=== PATIENT | female | born 1970 | race Caucasian/White ===

== ENCOUNTER → 2018-09-17 12:41 | Outpatient (CLI) | payer BC, SELFPAY ==
--- NOTE | 2018-09-17 13:03 | EKG12_ITS ---
Test Reason : PRE OP Blood Pressure : / mmHG Vent. Rate : 083 BPM Atrial Rate : 083 BPM P-R Int : 172 ms QRS Dur : 084 ms QT Int : 356 ms P-R-T Axes : 054 080 064 degrees QTc Int : 418 ms Normal sinus rhythm with sinus arrhythmia Normal ECG Confirmed by KESHIA CARDOZA, ELISHA ([id number]), brands editor MELISSA SALINAS ([id number]) on 09/18/2018 2:44:16 PM Referred By: Benjamin Velasco Confirmed By:ELISHA SCHMITT MD
[2018-09-17 13:47] LABS: Absolute Lymphocyte Count 1.51 X10^3/ul (0.83-4.51); Absolute Neutrophil Count 3.9 X10^3/uL (2.0-7.7); Basophil# 0.02 X10^3/uL; Basophil% 0.3 % (0-1); Eosinophil# 0.22 X10^3/uL; Eosinophils% 3.6 % (0-5); Hemoglobin 14.7 g/dl (12.0-15.0); Lymphocyte # 1.51 X10^3/ul (4.0); Lymphocyte % 24.6 % (19-41); Mean Corp Hgb Conc 34.2 g/gl (32-36); Mean Corpuscular Hgb 33.5 pg (27.0-32.0); Mean Corpuscular Volume 97.9 fL (81-99); Mean Platelet Vol. 8.6 fl (6.2-12.0); Monocyte# 0.49 X10^3/uL; Neutrophil # 3.88 X10^3/uL (2.7-7.7); POSITIVE COUNT NO; POSITIVE DIFFERENTIAL NO; POSITIVE MORPHOLOGY NO; Platelet Count 331 K/mm3 (150-450); RBC Distribution Width CV 12.1 % (11.6-14.6); RBC Distribution Width SD 42.4 fl (35.1-43.9); Red Blood Count 4.39 M/mm3 (4.2-5.4); White Blood Count 6.2 K/mm3 (4.4-11.0)
[2018-09-17 14:13] LABS: Anion Gap 7 (5-15); BUN 17 mg/dL (7-18); BUN/Creat Ratio 14.3 RATIO (10-20); Calcium,Total 8.6 mg/dL (8.5-10.1); Chloride 106 mmol/L (98-107); Creatinine, Serum 1.19 mg/dL (0.55-1.02); EST Glomerular Filtration Rate 52 mL/min (>60); Est Glom Filt Rate - Afr Amer 63 mL/min (>60); Glucose 124 mg/dL (74-106); Potassium 3.6 mmol/L (3.5-5.1); Sodium Level 139 mmol/L (136-145)
== END ==
PROVIDERS: Physician Assistant; Family Provider Nurse Practitioner Primary Care; PCP Nurse Practitioner Primary Care; Referring Provider Orthopaedic Surgery; Visit Provider Orthopaedic Surgery
DX: Z01.818 Encounter for other preprocedural examination (principal)
CPT/HCPCS: 36415; 80048; 85025; 93005

== ENCOUNTER → 2020-06-29 14:51 | Outpatient (CLI) | payer BC, SELFPAY | PROVIDERS: PCP Nurse Practitioner Primary Care; Referring Provider Family Medicine; Visit Provider Family Medicine | DX: Z11.59 Encounter for screening for other viral diseases (principal) | CPT/HCPCS: 87635; U0003 ==

== ENCOUNTER → 2020-07-13 11:28 | Outpatient (CLI) | payer BC, SELFPAY | PROVIDERS: Referring Provider Family Medicine; Visit Provider Family Medicine | DX: Z11.59 Encounter for screening for other viral diseases (principal) | CPT/HCPCS: 87635; U0003 ==

== ENCOUNTER → 2020-07-27 12:33 | Outpatient (CLI) | payer BC, SELFPAY | PROVIDERS: Referring Provider Family Medicine; Visit Provider Family Medicine | DX: Z03.818 Encounter for observation for suspected exposure to other biological agents ruled out (principal) | CPT/HCPCS: 87635; U0003 ==

== ENCOUNTER → 2020-08-10 10:40 | Outpatient (CLI) | payer BC, SELFPAY | PROVIDERS: Referring Provider Family Medicine; Visit Provider Family Medicine | DX: Z03.818 Encounter for observation for suspected exposure to other biological agents ruled out (principal) | CPT/HCPCS: 87635; U0003 ==

== ENCOUNTER → 2020-08-24 12:11 | Outpatient (CLI) | payer BC, SELFPAY | PROVIDERS: Referring Provider Family Medicine; Visit Provider Family Medicine | DX: Z03.818 Encounter for observation for suspected exposure to other biological agents ruled out (principal) | CPT/HCPCS: 87635; U0003 ==

== ENCOUNTER 2023-04-18 09:53 | Day surgery (SDC) | payer BC, SELFPAY ==
--- NOTE | 2023-04-11 15:47 | HP.PCM_ITS ---
History and Physical Date of Admission: 04/18/23 HPI: The patient is a 52 year old female presenting for pre-operative visit. She is scheduled for hysteroscopy D&C with polyp resection and progestin IUD insertion. Possible fibroid resection, for heavy menstrual bleeding and endometrial polyp and intramural uterine fibroid on 04/18/23. Procedure discussed along with risks, benefits and complications. Other alternatives discussed for management. Consent form signed? Yes. ? ? PAST MEDICAL HISTORY PAST MEDICAL HISTORY Diagnosis Date ? Migraine, unspecified, with intractable migraine, so stated, without mention of status migrainosus ? ? PMH - PAST MEDICAL HISTORY OF ? ? seasonal allergies ? PTSD (post-traumatic stress disorder) ? ? Rosacea ? ? Unspecified asthma(493.90) ? ? ? PAST SURGICAL HISTORY PAST SURGICAL HISTORY Procedure Laterality Date ? DELIVERY ONLY ? 07/01/2003 ? , low cervical ? DELIVERY ONLY ? 03/13/2008 ? , low cervical ? FALLOPIAN TUBE RECANALIZATION Bilateral 2014 ? LIG/TRNSXJ FLP TUBE ABDL/VAG APPR UNI/BI ? 10/13/2007 ? Tubal ligation ? PAST SURGICAL HISTORY OF ? 10/13/2009 ? sinus surgery ? ? ? CURRENT MEDICATIONS Current Outpatient Medications Medication Sig Dispense Refill ? desvenlafaxine ER (PRISTIQ) 100 mg 24 hr tablet Take 100 mg by mouth once daily. ? ? ? buPROPion XL (WELLBUTRIN XL) 150 mg 24 hr tablet Take 150 mg by mouth once daily. ? ? ? pregabalin (LYRICA) 100 mg capsule Take 100 mg by mouth once daily. ? ? ? traZODone (DESYREL) 100 mg tablet take 1 to 2 tablets by mouth at bedtime if needed for sleep ? ? ? cholecalciferol, vitamin D3, 100 mcg (4,000 unit) cap Take 1 capsule by mouth once daily. ? ? ? fexofenadine-pseudoephedrine (SHARON D) 60-120 mg per tablet Take 1 tablet by mouth every morning. ? ? ? albuterol HFA (PROVENTIL HFA, VENTOLIN HFA) 90 mcg/actuation inhaler Inhale 2 Puffs as instructed as needed. ? ? ? topiramate (TOPAMAX) 100 mg tablet Take 1 tablet by mouth twice daily. ? 0 ? fexofenadine (SHARON) 180 mg tablet Take 1 tablet by mouth once daily. ? 0 ? montelukast (SINGULAIR) 10 mg tablet Take 1 tablet by mouth daily at bedtime. ? 0 ? onabotulinum toxin type A (BOTOX) 200 unit injection as directed Injection ? ? ? NURTEC ODT 75 mg disintegrating tablet dissolve 1 tablet on top of the tongue every other day ? ? ? Eiabugaxwimbjff-Dvzyhehqa-GK (BROMFED DM) 2-30-10 mg/5 mL syrup Take 10 mL by mouth four times daily as needed. (Patient not taking: Reported on 04/10/2023) 200 mL 0 ? Follitropin Beta (FOLLISTIM AQ) 300 unit/0.36 mL crtg Inject 225 Units subcutaneously once daily. (Patient not taking: Reported on 04/10/2023) 4 Cartridge 3 ? progesterone micronized (PROMETRIUM) 200 mg capsule Use 1 capsule vaginal ly as directed. Insert 2 capsules vaginally in the AM and 2 capsules vaginally in the PM (Patient not taking: Reported on 04/10/2023) 120 capsule 2 ? No current facility-administered medications for this visit. ? ? ALLERGIES: Bactrim [Sulfamethoxazole], Hydromorphone, and Seasonal [Other] ? PERSONAL HISTORY: SOCIAL HISTORY Social History ? Tobacco Use ? Smoking status: Never ? Smokeless tobacco: Never Substance Use Topics ? Alcohol use: Yes ? ? Comment: occasionally ? Drug use: No ? FAMILY HISTORY: FAMILY HISTORY FAMILY HISTORY Problem Relation Age of Onset ? Hypertension Mother ? ? Blood Disease Father ? ? Clotting disorder ON COUMADIN ? Hypertension Maternal Grandmother ? ? Alzheimer's Disease Maternal Grandmother ? ? other (lupus) Paternal Grandmother ? ? Diabetes Paternal Grandfather ? ? Cerebral Embolism Paternal Grandfather ? ? Cancer Maternal Uncle ? ? stomach ? other (ursula syndrome) Other ? ? nephew ? other (lupus) Paternal Aunt ? ? ? REVIEW OF SYMPTOMS: GENERAL: denies fevers or chills ENDOCRINOLOGY: has not been on steroids Cardiology : denies palpitations or chest pain Respiratory: denies SOB or cough Hematology: denies history of prolonged bleeding or easy bruising or VTE Allergy: Denies history of personal or family history of allergy to anesthesia ? PHYSICAL EXAMINATION: ? VITALS: Blood pressure 116/78, pulse 82, height 5' 4.25 (1.632 m), weight 190 lb (86.2 kg), last menstrual period 03/25/2023, SpO2 98 %. ? GENERAL: The patient is well nourished, well hydrated in no acute distress. , The patient is oriented to time, place, and person. NECK: Supple. No lynphadenopathy, normal thyroid, no thyromegaly. LUNGS: Clear to auscultation bilaterally. no wheezes, rhonchi or rales HEART: Regular rate and rhythm, Normal heart sounds, and No murmurs or gallops ? IMPRESSION: Menorrhagia with regular cycle, endometrial polyp, intramural uterine fibroid ? PLAN: The risks/benefits/alternatives and personal involved for the planned hysteroscopy D&C with endometrial polyp resection, progestin IUD insertion and possible fibroid resection were reviewed with the patient. Her questions were answered to her satisfaction and she desires to proceed. Consent was signed. I reviewed with her postop instructions and expectations. IUD has been placed to increase chances of amenorrhea as well as provide contraception. Patient had a history of previous tubal sterilization and then had a tubal reversal. ? ? I have reviewed and updated past medical and surgical history, medications and allergies Assessment & Plan Assessment/Plan (1) Menorrhagia: (2) Endometrial polyp: (3) Intramural uterine fibroid:
[2023-04-18 10:26] LABS: Internal QC Validated? YES +Cl - CLEAR BKGD; Pregnancy, Urine Negative Negative
[2023-04-18 10:28] VITALS: BP 129/63; PULSE 76; RESP 16; TEMP 36.6; O2SAT 98; BMI 31.1
[2023-04-18] MEDS: Lactated Ringers 1,000 ML 15 ML IV (10:43)
[2023-04-18] MEDS: Ketorolac 30 MG/ML Syringe IV (10:44)
[2023-04-18] MEDS: Acetaminophen 500 MG Tablet 1000 MG PO (10:45)
[2023-04-18] MEDS: Scopolamine 1mg/72hr Patch 1 PATCH TD (10:45)
[2023-04-18 10:49] LABS: Hematocrit 41.1 % (37-47); Hemoglobin 13.7 g/dL (12.0-15.0); Mean Corp Hgb Conc 33.3 g/dL (32-36); Mean Corpuscular Hgb 33.2 pg (27.0-32.0); Mean Corpuscular Volume 99.5 fL (81-99); Mean Platelet Vol. 8.6 fl (6.2-12.0); Platelet Count 271 K/mm3 (150-450); RBC Distribution Width CV 11.9 % (11.6-14.6); RBC Distribution Width SD 42.9 fl (35.1-43.9); Red Blood Count 4.13 M/mm3 (4.2-5.4); White Blood Count 6.5 K/mm3 (4.4-11.0)
[2023-04-18 11:03] LABS: Anion Gap 5 (5-15); BUN 18 mg/dL (7-18); BUN/Creat Ratio 15.1 RATIO (10-20); Calcium,Total 9.1 mg/dL (8.5-10.1); Chloride 112 mmol/L (98-107); Creatinine, Serum 1.19 mg/dL (0.55-1.02); EST Glomerular Filtration Rate 51 mL/min (>60); Est Glom Filt Rate - Afr Amer 62 mL/min (>60); Estimated Creatinine Clearance 52.95 ml/min; Glucose 108 mg/dL (74-106); Potassium 4.2 mmol/L (3.5-5.1); Sodium Level 141 mmol/L (136-145)
--- NOTE | 2023-04-18 11:30 | EMB_PTH ---
PATIENT: BECCA CASEY LOC: [facility] [place][id number] AGE/SX: 52/F ROOM: RE04/18/[address]: Dr. Shea Payton MD : 1970 BED: DIS: 04/18/2023 SPEC #: [id number] RECD: 04/18/23 14:04 STATUS: LILIA PETROS #: [id number] CORDELL: 04/18/23 11:[address]: Shea Payton DEPT: SURGICAL PATHOLOGY RECD BY: Denise Thompson ENTERED: 04/21/23 08:42 SP TYPE: ENDOM BX/C MICHEL DR: Jael Elder, LINDA-C Tissues: Endometrium, NOS Procedures: Surgery Specimen Level IV HEADER OPERATION: Cysteroscopy, D&C, Symphion, IUD insertion, ablation PRE-OP DIAGNOSIS: Menorrhagia, polyp intramural uterine fibroid TISSUE SUBMITTED: Endometrial shavings MICROSCOPIC DIAGNOSIS Endometrial shavings: Disordered proliferative endometrium. Fragments of myometrium. SJ: 04/22/2023 MICROSCOPIC DESCRIPTION Slides are reviewed. GROSS DESCRIPTION Received is one container labeled with the patient name and designated endometrial savings. The specimen consists of multiple irregular fragments of light etienne soft tissue that in aggregate measure 5 x 3 x 0.3 cm. The specimen is totally submitted in two cassettes. / SJ: 04/21/23 TC:5 CPT: 38079
--- NOTE | 2023-04-18 12:30 | DCINST_ITS ---
Discharge Instructions Diet Discharge Diet: No restrictions Activity May resume sexual activity in: 2 weeks Lifting Restrictions: none Dressing / Incision Call your doctor if your incision/area has: Sudden Increased Bleeding and Foul Smelling Discharge Call your doctor if you observe: Fever of 101 or Higher and Using more than 1 pad per hour (for 2 hrs in a row) Follow Up Care Please Follow Up With: Shea Payton MD When: As needed. Call [phone] or send a [employer] message to make an appointment or with any concerns. Test Results: Test results from this visit will be discussed in further detail at your follow- up appointment, if applicable. Discharge Plan Admission Primary Reason for Your Visit: Hysteroscopy D&C with Liletta IUD insertion Attending Provider: Shea Payton Primary Care Provider: Jael Elder NP Discharge Orders/Prescriptions Prescriptions: No Action albuterol sulfate 90 mcg/actuation HFA aerosol inhaler 1 inh INHALATION PRN Patient Comments: inhale 2 puffs by mouth and INTO THE LUNGS every 4 hours if neede... (REFER TO PRESCRIPTION NOTES). bupropion HCl 150 mg tablet extended release 24 hr 150 mg PO DAILY Patient Comments: take 1 tablet by mouth every 24 hours desvenlafaxine succinate 100 mg tablet extended release 24 hr 100 mg PO DAILY Patient Comments: take 1 tablet by mouth once daily epinastine 0.05 % drops 1 drp ophthalmic (eye) PRN Patient Comments: INSTILL ONE DROP IN EACH EYE TWICE DAILY NEEDED fexofenadine-pseudoephedrine [Jnenifer-D 12 Hour] 60-120 mg tablet extended release 12 hr 1 tab PO QHS Patient Comments: take 1 tablet by mouth every morning montelukast 10 mg tablet 10 mg PO QHS Patient Comments: take 1 tablet by mouth every morning pregabalin 100 mg capsule 100 mg PO DAILY Patient Comments: take 1 capsule by mouth once daily AT THE SAME TIME EACH DAY Nurtec ODT 75 mg tablet,disintegrating 75 mg PO PRN Patient Comments: dissolve 1 tablet on top of the tongue every other day topiramate 100 mg tablet 100 mg PO BID Patient Comments: take 1 tablet by mouth twice a day trazodone 100 mg tablet 100 mg PO QHS Patient Comments: take 1 to 2 tablets by mouth at bedtime if needed for sleep fexofenadine-pseudoephedrine [Jennifer-D 12 Hour] 60-120 mg tablet extended release 12 hr 1 tab PO DAILY Disposition Disposition (needs filled in before D/C Order can be placed): Home, Self Care
[2023-04-18] MEDS: Lidocaine 1% /Epi 1:100 (20ml) 20 ML Vial (12:49)
[2023-04-18] MEDS: Levonorgestrel IUD (Liletta) 1 EACH INTRA-UTER (12:58)
--- NOTE | 2023-04-18 13:05 | OP.PCM_ITS ---
Problems Associated Problem List Diagnoses (1) Menorrhagia: Report of Operation Date of Procedure: 04/18/23 Pre-Operative Diagnosis: menorrhagia, Intramural uterine fibroid, endometrial polyp Post-Operative Diagnosis: menorrhagia, intramural uterine fibroid Surgery/Procedure Performed:: hysteroscopy visual D&C with endometrial ablation and Liletta IUD insertion Description of Surgical Findings:: Lush endometrium, no discrete polyps, fibroid not impingin on cavity. Both tubal ostia noted Surgeon: Shea Payton home fire alarm installer: None Type of Anesthesia: General Anesthesiologist: Benji Evangelista Special Medications: none Specimen's removed: endometrial curettings Drains: none Estimated Blood Loss (mL): 10 Fluids Replaced: 900 Description of Procedure: The patient was taken to the OR where she was prepped and draped in dorsal lithotomy position. The weighted speculum was placed in the vagina and the anterior lip of the cervix was grasped with a single-tooth tenaculum. A paracervical block was administered with [1% lidocaine with 1-100,000 epinephrine solution]. The cervix was dilated serially with Hegar dilators. The symphion hysteroscope was placed into the uterine cavity and the above findings were noted. Bilateral tubal ostia [were] identified. The uterus sounded to 10cm and the cervical length was 4.5cm. The endometrial cavity length was 5.5cm. The Symfi on resection device was used to do a visual dilation and curettage. The specimen was handed off and sent to pathology. The Ana device was set to 5.5cm. The instrument was then seated into the endometrial cavity and the indicator was in the green. The cervical seal balloon was inflated and the uterine integrity test was passed. The ablation procedure was initiated and completed without interruption. During the ablation procedure gentle traction was held on the tenaculum and the Ana device was held up against the uterine fundus. When the ablation procedure was completed the Ana was removed. The Liletta IUD was then inserted in the usual sterile fashion without difficulty. The strings were cut to 2 cm. The tenaculum was removed and the tenaculum site was noted to be hemostatic. All sponge and needle counts were correct. A vaginal sweep was performed by me. The patient was awakened and taken to the recovery room in stable condition. Hysteroscopic fluid deficit calculated to be 550 mL of normal saline Grafts/Implants Used: Liletta IUD Procedure Start Time: 12:43 Procedure Stop Time: 13:04 Complications none Admit VTE Documentation VTE Present on Admission: No VTE Mechan Device Prophylaxis: SCD's VTE Pharm Prophylaxis ordered?: No Reason prophylaxis not ordered:: Procedure Not Indicated
[2023-04-18 13:15] VITALS: BP 129/63; BP 87/53; PULSE 67; RESP 16; O2SAT 97
[2023-04-18 13:16] VITALS: BP 129/63; BP 97/53; PULSE 78; RESP 16; TEMP 36.6; O2SAT 97
[2023-04-18 13:30] VITALS: BP 108/64; BP 129/63; PULSE 89; RESP 16; O2SAT 100
[2023-04-18 13:40] VITALS: BP 104/55; BP 129/63; PULSE 79; RESP 16; TEMP 36.1; O2SAT 100
[2023-04-18 13:56] VITALS: BP 129/63
== END 2023-04-18 14:18 | disposition home or self-care (01) ==
LOC: SDC 09:54 → AC 09:55
PROVIDERS: PCP Nurse Practitioner Primary Care; Referring Provider Obstetrics & Gynecology; Visit Provider Obstetrics & Gynecology
PROC: 0UB98ZZ Excision of Uterus, Via Natural or Artificial Opening Endoscopic (ICD-10-PCS; CPT 58558; principal; 2023-04-18 11:15)
DX: N92.0 Excessive and frequent menstruation with regular cycle (principal); N84.0 Polyp of corpus uteri; D25.1 Intramural leiomyoma of uterus; J45.909 Unspecified asthma, uncomplicated; F41.9 Anxiety disorder, unspecified; F43.10 Post-traumatic stress disorder, unspecified; G43.909 Migraine, unspecified, not intractable, without status migrainosus; Z79.899 Other long term (current) drug therapy; Z30.430 Encounter for insertion of intrauterine contraceptive device
CPT/HCPCS: 58563; 58300; 00952; 80048; 81025; 85027; 88305; J7120; J2405